=== PATIENT | female | born 1970 | race Caucasian/White ===

== ENCOUNTER → 2019-05-22 | Day surgery (SDC) | payer BC ==
[~2019-05-22] MED LIST: BUPIVACAINE HCL 0.5% INJ 30 ML VIAL INJ ONE; CEFAZOLIN SOD 1 GM/NS 50ML 50 ML IV ONE; DEXAMETHASONE SOD PHOS INJ 4 MG/ML VIAL ONE; FENTANYL CITRATE/PF 100MCG/2 ML INJ ONE; KETOROLAC TROMETHAMINE 30 MG/ML VIAL ONE; LIDOCAINE HCL 2% LOCAL INJ 5 ML SDV VIAL INJ ONE; MIDAZOLAM HCL 2 MG/2 ML VIAL ONE; NEXIUM PO; ONDANSETRON HCL INJ 2MG/ML 2ML 2 MG/ML VIAL ONE; PROPOFOL IV EMULSION 10 MG/ML 20 ML VIAL ONE; SEVOFLURANE INHAL SOLN 250 ML PEN BTL ONE
--- OUTSIDE RECORDS SUMMARY | 2019-05-22 05:41 | XMS REPORT ---
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 Allergies, Adverse Reactions, Alerts This patient has no known allergies or adverse reactions. Medications This patient has no known medications. Encounters Start Date/Time End Date/Time Encounter Type Admission Type Attending Clinicians Care Facility Care Department Encounter ID 2017-07-12 00:00:00 2017-07-14 00:00:00 Outpatient [facility] [id number] Results Test Description Test Time Test Comments Text Results Atomic Results Result Comments SCR MAMM BILATERAL DEBORAH CAD DIGITAL 2018-09-17 12:29:07 - SCR MAMM BILATERAL DEBORAH CAD DIGITALBILATERAL DIGITAL SCREENING MAMMOGRAM 3D/2D WITH CAD: 09/15/2018CLINICAL: Asymptomatic. Digital breast tomosynthesis was performed in addition to routine CC and MLO views. Current mammographic images were evaluated by either a [employer] M-Vu or a [employer] Image[employer]er CAD (computer aided detection system). Comparison is made to exams dated 08/07/2017 mammogram, 08/02 mammogram - [facility], and 06/14/2015 mammogram - [facility]. The tissue of both breasts is heterogeneously dense. This may lower the sensitivity of mammography. No suspicious mass, architectural distortion, malignant type calcification, or lymph node abnormality detected. Breast architecture is stable compared to prior exams.IMPRESSION: NEGATIVEThere is no mammographic evidence of malignancy. Resume annual screening mammography in one year. Tejal tobar/karly:09/17/2018 12:29:07 Gas Singer: Ynes COLLADO, [facility]: BIRADS 1-2 Normal Mammogram BI-RADS: 1 Negative
[2019-05-22 08:05] VITALS: BP 116/72
--- NOTE | 2019-05-22 15:16 | Operative Report ---
DATE OF PROCEDURE: 05/22/2019 SURGEON: Kirstin Nation DPM ([place]) PREOPERATIVE DIAGNOSIS: Fibroma, left foot. POSTOPERATIVE DIAGNOSIS: Fibroma, left foot. OPERATIVE PROCEDURE: Excision of fibroma, left foot. DESCRIPTION OF PROCEDURE: The patient was placed on the OR table in the supine position. The left lower extremity was prepped and draped in the usual manner. A general anesthetic was administered and hemostasis accomplished using a pneumatic cuff set at 250 mmHg at ankle level. A lazy-S type incision was made along the medial band of the plantar fascia on the plantar aspect of the foot and in total, the incision was approximately 5 cm. The incision was deepened. Blood vessels were either ligated or retracted. The plantar fascia was then exposed. The plantar fascia along the medial band was then stripped out to a length of approximately 3.5 to 4 cm, which included the fibroma in the part that was stripped from the medial band. The remaining area of the plantar fascia was examined and no further fibroma growth was noted. The wound was flushed with sterile saline solution. The skin was then closed with 3-0 nylon following the procedure. A 10 mL of 0.5 Marcaine and 1 mL of Decadron were injected to minimize postop pain. A sterile compression dressing was applied. At this time, the pneumatic cuff was released and a reflex hyperemia was observed to all digits. The patient tolerated the procedure and anesthesia well and left the OR to recovery in good condition with vital signs stable. Kirstin Nation DPM ([place]) /MODL /[id number]
== END | disposition home or self-care (01) ==
LOC: OR 05:35
PROVIDERS: ATTEND Podiatrist Foot & Ankle Surgery
DX: D21.22 Benign neoplasm of connective and other soft tissue of left lower limb, including hip (principal)
CPT/HCPCS: 28062; 81025; J0690; J1100; J1885; J2001; J2250; J2405; J2704; J3010

== ENCOUNTER → 2020-05-06 | Day surgery (SDC) | payer BC ==
[~2020-05-06] MED LIST changes: +HAIR VITAMIN1 EACH PO; -KETOROLAC TROMETHAMINE 30 MG/ML VIAL ONE; -LIDOCAINE HCL 2% LOCAL INJ 5 ML SDV VIAL INJ ONE; -MIDAZOLAM HCL 2 MG/2 ML VIAL ONE; +NEXIUM20 MG PO; -ONDANSETRON HCL INJ 2MG/ML 2ML 2 MG/ML VIAL ONE; +PROBIOTIC PO; -PROPOFOL IV EMULSION 10 MG/ML 20 ML VIAL ONE; -SEVOFLURANE INHAL SOLN 250 ML PEN BTL ONE
[2020-05-06 08:15] VITALS: BP 120/71
== END | disposition home or self-care (01) ==
LOC: OR 05:27
PROVIDERS: ATTEND Podiatrist Foot & Ankle Surgery
DX: M77.31 Calcaneal spur, right foot (principal); M72.2 Plantar fascial fibromatosis; K21.9 Gastro-esophageal reflux disease without esophagitis; R06.83 Snoring; Z01.812 Encounter for preprocedural laboratory examination; Z20.822 Contact with and (suspected) exposure to COVID-19
CPT/HCPCS: 28119; 81025; J0690; J1100; J3010; U0002